=== PATIENT | female | born 1965 | race Caucasian/White ===

== ENCOUNTER 2020-01-28 16:51 | Emergency (ER) | payer MEDICAID, SELFPAY ==
[2020-01-28 17:00] VITALS: BP 98/56; PULSE 89; RESP 15; TEMP 36.7; O2SAT 98
--- NOTE | 2020-01-28 17:00 | DI.RAD_ITS ---
EXAM: XR CHEST 2V PA LATERAL CLINICAL HISTORY: fever TECHNIQUE: COMPARISON: No exams were available for comparison FINDINGS: Heart is not enlarged. There appear to be mild changes of pulmonary scarring. There is an approxima tely 1 cm in diameter right suprahilar nodular radiodensity with somewhat irregular borders. Althoug h this may be related to pulmonary scarring, the possibility of pulmonary mass would have to be raise d. Prior chest radiographs requested for comparison, if no prior films are available for comparison, chest CT would be recommended for further evaluation of this possible mass to rule out neoplasm. IMPRESSION: RADIATION DOSE DELIVERED: Total DLP Total DLP
--- NOTE | 2020-01-28 17:00 | DI.CT_ITS ---
EXAM: CT ABDOMEN PELVIS W INDICATION: s/p abdominal surgery now with fever, ? abscess. COMPARISON: No exams were available for comparison TECHNIQUE: FINDINGS: CT examination of the abdomen and pelvis was performed with a bolus infusion of 84 cc of Omnipaque 35 0. Images obtained through the lung bases are unremarkable. The liver is unremarkable in appearance. Gallbladder and bile ducts are CT normal. Pancreas appears normal. Spleen is unremarkable in appearance. There is a 40 x 17 millimeter in diameter right adrenal mass which contains calcification versus irre gular enhancement. Adrenal protocol CT suggested for further evaluation if there are no prior CT corwin dies for comparison. The kidneys are unremarkable with no evidence of hydronephrosis, nephrolithiasis, or renal mass.. Ur inary bladder unremarkable. Abdominal aorta is of normal diameter and no major vascular abnormality is seen. No abdominal wall hernia. No retroperitoneal adenopathy. [employer] structures appear intact. The appendix is normal. Patient has reportedly had a recent bowel resection. There is an apparent s renu-to-side small bowel anastomosis in left upper quadrant with associated mild mesenteric lymph node prominence. Vascular clips are noted adjacent to the ascending colon and in the pelvis. There is gas in the anterior abdominal wall both in the 6 subcutaneous and deep tissues. No intraper itoneal gas seen. Trace free fluid noted in the pelvis, nonspecific. IMPRESSION: No evidence of abscess formation in a postoperative patient. Incidental right adrenal mass, prior CT or MR requested for comparison, if there have not been prior examinations additional evaluation with adrenal protocol CT would be recommended. RADIATION DOSE DELIVERED: 651.96mGy.cm Total DLP 651.96mGy.cm Total DLP
[2020-01-28] MEDS: Normal Saline 1,000 ML 1000 ML IV (17:24)
[2020-01-28 17:28] LABS: Abs Immature Grans 0.02 10^3/uL (0.0-0.06); Absolute Basophil Count 0.04 10^3/uL (0.0-0.2); Absolute Eosinophil Count 1.44 10^3/uL (0.0-0.7); Absolute Lymphocyte Count 1.51 10^3/uL (1.2-3.4); Absolute Monocyte Count 0.73 10^3/uL (0.1-0.8); Absolute Neutrophil Count 4.57 10^3/uL (1.2-6.7); Basophils % 0.5; Eosinophils % 17.3; HCT 33.6 % (36.0-46.0); HGB 10.8 g/dL (11.2-15.7); Immature Grans % 0.2; Lactate 0.8 mmol/L (0.6-1.4); Lymphocytes % 18.2; MCH 29.2 pg (27.0-33.0); MCHC 32.1 % (32.0-36.0); MCV 90.8 fL (80-95); MPV 9.6 fL (8.0-11.0); Monocytes % 8.8; Nucleated RBC 0 %; Platelet Count 364 10^3/uL (130-400); RDW 12.7 % (11.7-14.6); RDW-SD 42.4 fL; WBC 8.31 10^3/uL (4.4-10.8)
[2020-01-28 17:53] LABS: ALT 45 U/L (14-59); AST 42 U/L (15-37); Albumin 3.3 g/dL (3.4-5.0); Alkaline Phosphatase 315 U/L (46-116); Anion Gap 8.2 mmol/L (3-11); BUN 19 mg/dL (7-18); Bilirubin, Total 0.2 mg/dL (0.2-1.0); CO2 27.8 mmol/L (21.0-32.0); CREATININE 1.21 mg/dL (0.55-1.02); Calcium 8.7 mg/dL (8.5-10.1); Chloride 101 mmol/L (98-107); Estimated GFR 46.55 (mL/min/1.73m2); Glucose 96 mg/dL (74-106); Magnesium 1.7 mg/dL (1.8-2.4); Potassium 3.9 mmol/L (3.5-5.1); Sodium 137 mmol/L (136-145); Total Protein 6.7 g/dL (6.4-8.2)
[2020-01-28] MEDS: Omnipaque 350 MG/ML 100 ML BTL IJ (18:21)
[2020-01-28] MEDS: Normal Saline - Diluent 50 ML VIAL IV (18:22)
--- NOTE | 2020-01-28 18:35 | DI.VRAD_ITS ---
PROCEDURE INFORMATION: Exam: CT Abdomen And Pelvis With Contrast Exam date and time: 01/28/2020 5:15 PM Age: 54 years old Clinical indication: Prior surgery; Surgery date: <1 month; Surgery type: Bowel resection; Patient HX: Resection SX 10 days ago, now fever; Additional info: ? Abscess TECHNIQUE: Imaging protocol: Computed tomography of the abdomen and pelvis with intravenous contrast. COMPARISON: No relevant prior studies available. FINDINGS: Liver: Normal. No mass. Gallbladder and bile ducts: Normal. No calcified stones. No ductal dilation. Pancreas: Normal. No ductal dilation. Spleen: Normal. No splenomegaly. Adrenal glands: Enlarged, heterogeneous right adrenal gland measuring 4 x 1.7 cm. Normal left adrenal gland. Kidneys and ureters: Small right renal cyst. No hydronephrosis. Stomach and bowel: No evidence of bowel obstruction. No mucosal thickening. Large amount of stool in the colon. Appendix: Normal appendix. Intraperitoneal space: Unremarkable. No free air. No significant fluid collection. Vasculature: Atherosclerosis of the abdominal aorta without aneurysm or dissection. Lymph nodes: Unremarkable. No enlarged lymph nodes. Urinary bladder: Unremarkable as visualized. Reproductive: Unremarkable as visualized. Bones/joints: Unremarkable. No acute fracture. Soft tissues: Soft tissue swelling around the umbilicus. Subcutaneous gas in the left abdominal wall. IMPRESSION: 1. Enlarged, heterogeneous right adrenal gland which could represent a mass or possibly adrenal hemorrhage. 2. Postsurgical changes of the abdominal wall. Dictated and Authenticated by: John Agustin MD. Ordering:MARLYN Dooley MD
--- NOTE | 2020-01-28 19:25 | DI.VRAD_ITS ---
PROCEDURE INFORMATION: Exam: XR Chest, 2 Views Exam date and time: 01/28/2020 6:16 PM Age: 54 years old Clinical indication: Fever; ?abscess. Prior surgery; Bowel resection SX 10 days ago TECHNIQUE: Imaging protocol: XR of the chest Views: 2 views. COMPARISON: No relevant prior studies available. FINDINGS: Lungs: No alveolar infiltrate. On the frontal view, approximate 9 mm nodule or scar within the superolateral right parahilar region. If clinically indicated, CT thorax with contrast may be useful in further evaluation. Pleural space: No pleural fluid collection. No pneumothorax. Heart/Mediastinum: Normal heart size. Bones/joints: Unremarkable for age. IMPRESSION: On the frontal view, approximate 9 mm nodule or scar within the superolateral right parahilar region. If clinically indicated, CT thorax with contrast may be useful in further evaluation. Dictated and Authenticated by: Alex Ricci MD. Ordering:MARLYN Dooley MD
--- NOTE | 2020-01-28 19:43 | ED.GENADUL_ITS ---
Discharge Plan Disposition Patient Disposition: HOME Condition: Stable Discharge Details Clinical Impression: Cellulitis Primary Care Provider: GABI ARCHIBALD ED Provider: Soumya Lujan Home Meds and New Rx's Prescriptions: New amoxicillin-pot clavulanate [Augmentin] 875-125 mg tablet 1 tab PO BID Qty: 14 RF: 0 No Action prednisone 5 mg Tablet 5 mg PO DAILY RF: 0 clonazepam 1 mg Tablet 1 mg PO BID RF: 0 levothyroxine [Synthroid] 50 mcg Tablet 50 mcg PO DAILY RF: 0 ferrous sulfate 325 mg (65 mg iron) Tablet 325 mg PO DAILY RF: 0 escitalopram oxalate [Lexapro] 10 mg Tablet 10 mg PO HS RF: 0 Discharge Instructions Instructions: Cellulitis (ED) Additional Instructions: Continue routine postoperative care as previously directed Take antibiotic as prescribed even if you feel better and less instructed otherwise by your surgeon Contact their office tomorrow for further follow-up instructions Referrals: [facility]OTHER] - Medical Decision Making infection work up including cxr, CT abd/pelvis, UA and basic labs. all unrevealing. source likely some mild cellulitis at surgical site, covid testing is pending. no respiratory symptoms. will discharge home on augmentin bid as discussed with her surgeon at [facility] Dr Payne. she will f/u with them tomorrow. no fever while here, vitals stable. blood pressure soft but states this is her baseline. received stress dose steroids at [facility]. Medical Records Medical records reviewed: Yes I reviewed the patient's medical records. Medical records narrative: discussed with Dr Payne [facility], surgeon who performed her surgery Lab Data Lab results reviewed: Yes I reviewed the patient's lab results. Lab results narrative: Laboratory Results - last 24 hr 01/28/20 01/28/20 01/28/20 17:15 17:15 17:15 WBC 8.31 RBC 3.70 L Hgb 10.8 L Hct 33.6 L MCV 90.8 MCH 29.2 MCHC 32.1 RDW 12.7 Plt Count 364 MPV 9.6 Immature Gran % 0.2 Neutrophils % 55.0 Lymphocytes % 18.2 Monocytes % 8.8 Eosinophils % 17.3 Basophils % 0.5 Nucleated RBC % 0 Absolute Neutrophils 4.57 Absolute Lymphocytes 1.51 Absolute Monocytes 0.73 Absolute Eosinophils 1.44 H Absolute Basophils 0.04 VBG Lactate 0.8 Sodium 137 Potassium 3.9 Chloride 101 Carbon Dioxide 27.8 Anion Gap 8.2 BUN 19 H Creatinine 1.21 H Estimated GFR/1.73 m2 46.55 Glucose 96 Calcium 8.7 Magnesium 1.7 L Total Bilirubin 0.2 AST 42 H ALT 45 Alkaline Phosphatase 315 H Total Protein 6.7 Albumin 3.3 L HPI General Date/Time Provider Initiated Documentation: 01/28/20 16:53 . Limitations to Documentation: no limitations . Information obtained by: patient . HPI Narrative: post op day 6 from resection of metastatic melanoma. reports she was doing well postoperatively but developed a fever today, she reports some mild erythema at surgical site and some drainage, clear. she denies increased abdominal pain, respiratory c/o, urinary c/o or any other signs of infection. Related Data Home Medications Medication Instructions Recorded Confirmed amoxicillin-pot clavulanate 1 tab PO BID #14 tab 01/28/20 [Augmentin] clonazepam 1 mg PO BID 01/28/20 01/28/20 escitalopram oxalate [Lexapro] 10 mg PO HS 01/28/20 01/28/20 ferrous sulfate 325 mg PO DAILY 01/28/20 01/28/20 levothyroxine [Synthroid] 50 mcg PO DAILY 01/28/20 01/28/20 prednisone 5 mg PO DAILY 01/28/20 01/28/20 Previous Rx's Medication Instructions Recorded amoxicillin-pot clavulanate 1 tab PO BID #14 tab 01/28/20 [Augmentin] Allergies Allergy/AdvReac Type Severity Reaction Status Date / Time bupropion [From Wellbutrin] AdvReac Nausea Unverified 01/28/20 16:57 tramadol AdvReac Nausea Unverified 01/28/20 16:57 General Stated Complaint: Fever NGUYEN: 2 Review of Systems Constitutional Constitutional: Reports fever(s) Eyes Eyes: Denies change in vision ENT Ears, Nose, Mouth, and Throat: Denies vertigo and Denies dizziness Cardiovascular Cardiovascular: Denies chest pain and Denies dyspnea Respiratory Respiratory: Denies cough and Denies dyspnea Gastrointestinal Gastrointestinal: Denies change in bowel habits, Denies diarrhea, Denies nausea, Denies vomiting and Reports other (tenderness postoperative, improving) Genitourinary Genitourinary: Denies dysuria and Denies urinary urgency Musculoskeletal Musculoskeletal: Denies back pain Integumentary/Breasts Skin/Breast: Reports rash (mild erythema) Neurologic Neurologic: Denies vertigo and Denies dizziness PFSH Social History Smoking/Tobacco Use Status: Former Tobacco Use Tobacco: How many years used: 37 Smoking risk assessment performed?: Yes Alcohol Intake: never Drug use: Never Substance use type: does not use Do you feel safe at home: Yes Do you feel safe in your relationship?: Yes Exam Const General: cooperative, comfortable, no acute distress, frail appearing and ill appearing chronically Nutritional Appearance: thin Orientation: alert, awake and oriented x3 HENMT Head: normal to inspection, normocephalic and atraumatic Mouth: oral mucosae normal Chest Chest: normal inspection of the chest Resp Effort & Inspection: normal respiratory effort Auscultation: clear to auscultation bilaterally Cardio Rate: regular rate Rhythm: regular rhythm GI Inspection: normal to inspection Palpation: soft Auscultation: normal bowel sounds Skin Lesions: lesion noted (mid abd approximated mild erythema, laproscopic sites clear no erythema ) Neuro General: patient alert, patient awake, patient oriented x3 and no focal motor deficits Extrem General: normal to inspection, full ROM and no pedal edema Course Vital Signs Vital signs: Vital Signs Temperature 36.7 C 01/28/20 17:00 Pulse 89 01/28/20 17:00 Respiratory Rate 15 01/28/20 17:00 Blood Pressure 98/56 L 01/28/20 17:00 Pulse Oximetry 98 01/28/20 17:00 Temperature 36.7 C 01/28/20 17:00 Temperature Source Temporal Artery Scan 01/28/20 17:00 Pulse 89 01/28/20 17:00 Respiratory Rate 15 01/28/20 17:00 Respiratory Effort 01/28/20 17:06 Blood Pressure 98/56 L 01/28/20 17:00 Blood Pressure Position Supine 01/28/20 17:00 Pulse Oximetry 98 01/28/20 17:00 Oxygen Delivery Method Room Air 01/28/20 17:00 Oxygen Flow Rate 0 01/28/20 17:00 Pain Level 2 01/28/20 17:00 Lab/Test Results Lab/Test Results: 01/28/20 17:15 Blood Blood Culture - Pending 01/28/20 17:15 Blood Blood Culture - Pending Laboratory Tests Range/Units 01/28/20 01/28/20 01/28/20 17:15 17:15 17:15 WBC (4.4-10.8) 10^3/uL 8.31 RBC (3.93-5.22) 10^6/uL 3.70 L Hgb (11.2-15.7) g/dL 10.8 L Hct (36.0-46.0) % 33.6 L MCV (80-95) fL 90.8 MCH (27.0-33.0) pg 29.2 MCHC (32.0-36.0) % 32.1 RDW (11.7-14.6) % 12.7 Plt Count (130-400) 10^3/uL 364 MPV (8.0-11.0) fL 9.6 Immature Gran % 0.2 Neutrophils % 55.0 Lymphocytes % 18.2 Monocytes % 8.8 Eosinophils % 17.3 Basophils % 0.5 Nucleated RBC % % 0 Absolute Neutrophils (1.2-6.7) 10^3/uL 4.57 Absolute Lymphocytes (1.2-3.4) 10^3/uL 1.51 Absolute Monocytes (0.1-0.8) 10^3/uL 0.73 Absolute Eosinophils (0.0-0.7) 10^3/uL 1.44 H Absolute Basophils (0.0-0.2) 10^3/uL 0.04 VBG Lactate (0.6-1.4) mmol/L 0.8 Sodium (136-145) mmol/L 137 Potassium (3.5-5.1) mmol/L 3.9 Chloride (98-107) mmol/L 101 Carbon Dioxide (21.0-32.0) mmol/L 27.8 Anion Gap (3-11) mmol/L 8.2 BUN (7-18) mg/dL 19 H Creatinine (0.55-1.02) mg/dL 1.21 H Estimated GFR/1.73 m2 (mL/min/1.73m2) 46.55 Glucose (74-106) mg/dL 96 Calcium (8.5-10.1) mg/dL 8.7 Magnesium (1.8-2.4) mg/dL 1.7 L Total Bilirubin (0.2-1.0) mg/dL 0.2 AST (15-37) U/L 42 H ALT (14-59) U/L 45 Alkaline Phosphatase (46-116) U/L 315 H Total Protein (6.4-8.2) g/dL 6.7 Albumin (3.4-5.0) g/dL 3.3 L
[2020-01-28 19:44] VITALS: BP 90/50; PULSE 94; RESP 6; TEMP 37; O2SAT 98
[2020-01-28] MEDS: Amoxicillin 875/Clav. 125 TAB PO (20:04)
[2020-01-28 20:29] LABS: Bilirubin Negative (Negative); Blood Negative (Negative); Clarity Clear (Clear); Glucose Negative (Negative); Ketones Negative (Negative); Leukocyte Esterase Negative (Negative); Nitrite Negative (Negative); Urobilinogen 0.2 EU/dL (Up TO 0.2)
--- NOTE | 2020-01-29 08:35 | NUR.NOTE ---
Nursing Note: Lab called this morning stating that there was an outstanding COVID order. I spoke with Charli Lujan NP and she state that if there was no swab for the order then it can be cancelled. I called lab back, spoke with Saloni, and relayed this information to her. Norma Randolph
[2020-02-01 19:01] LABS: COVID-19 RT-PCR Result NEGATIVE (Negative)
== END 2020-01-28 20:11 | disposition home or self-care (01) ==
PROVIDERS: Emergency Provider Nurse Practitioner Acute Care; PCP Family Medicine
DX: T81.41XA Infection following a procedure, superficial incisional surgical site, initial encounter (principal); L03.311 Cellulitis of abdominal wall; C43.9 Malignant melanoma of skin, unspecified; Z11.59 Encounter for screening for other viral diseases
CPT/HCPCS: 36415; 80053; 87040; 96360; 96361; 99285; U0003; 71046; 74177; 81003; 83605; 83735; 85025; 99284; J3490

== ENCOUNTER 2021-04-03 02:10 | Outpatient (CLI) | payer MEDICAID, SELFPAY ==
[2021-04-03 12:32] LABS: Abs Immature Grans 0.03 10^3/uL (0.0-0.06); Absolute Basophil Count 0.09 10^3/uL (0.0-0.2); Absolute Eosinophil Count 0.35 10^3/uL (0.0-0.7); Absolute Monocyte Count 0.41 10^3/uL (0.1-0.8); Absolute Neutrophil Count 6.69 10^3/uL (1.2-6.7); Basophils % 1.1; Eosinophils % 4.1; HCT 40.5 % (36.0-46.0); HGB 13.2 g/dL (11.2-15.7); Immature Grans % 0.4; Lymphocytes % 11.7; MCH 29.4 pg (27.0-33.0); MCHC 32.6 % (32.0-36.0); MCV 90.2 fL (80-95); MPV 9.6 fL (8.0-11.0); Monocytes % 4.8; Neutrophils % 77.9; Nucleated RBC 0 %; Platelet Count 257 10^3/uL (130-400); RBC 4.49 10^6/uL (3.93-5.22); RDW 11.4 % (11.7-14.6); RDW-SD 37.7 fL; WBC 8.57 10^3/uL (4.4-10.8)
[2021-04-03 12:53] LABS: ALT 19 U/L (14-59); AST 20 U/L (15-37); Albumin 4.1 g/dL (3.4-5.0); Alkaline Phosphatase 77 U/L (46-116); Anion Gap 4.7 mmol/L (3-11); BUN 19 mg/dL (7-18); Bilirubin, Total 0.2 mg/dL (0.2-1.0); CO2 29.3 mmol/L (21.0-32.0); CREATININE 1.1 mg/dL (0.55-1.02); Calcium 9.3 mg/dL (8.5-10.1); Chloride 101 mmol/L (98-107); Estimated GFR 51.76 (mL/min/1.73m2); FREE T4 1.25 ng/dL (0.76-1.46); Glucose 110 mg/dL (74-106); LDH 124 U/L (81-234); Potassium 4.7 mmol/L (3.5-5.1); Sodium 135 mmol/L (136-145); TSH 1.62 uIU/mL (0.36-3.74); Total Protein 7.4 g/dL (6.4-8.2)
== END 2021-04-03 02:11 | disposition home or self-care (01) ==
LOC: LBO 02:10
PROVIDERS: PCP Family Medicine; Visit Provider Internal Medicine Hospice and Palliative Medicine
DX: C43.59 Malignant melanoma of other part of trunk (principal); Z79.899 Other long term (current) drug therapy
CPT/HCPCS: 36415; 80053; 83615; 84439; 84443; 85025